=== PATIENT | male | born 1990 | race Caucasian/White ===

== ENCOUNTER 2021-11-08 23:58 | Emergency (ER) | payer OTHER, SELFPAY ==
[2021-11-08 23:58] VITALS: BP 144/89; PULSE 69; RESP 18; TEMP 36.1; BMI 31.2
[2021-11-09 01:14] LABS: Absolute Lymphocyte Count 2.19 X10^3/uL (0.83-4.51); Absolute Neutrophil Count 2.7 X10^3/uL (2.0-7.7); Basophil# 0.06 X10^3/uL; Eosinophil# 0.28 X10^3/uL; Eosinophils% 4.7 % (0-5); Hematocrit 43.4 % (40-54); Hemoglobin 15.1 g/dL (13.0-16.5); Lymphocyte # 2.19 X10^3/ul (0.83-4.51); Lymphocyte % 36.7 % (19-41); Mean Corp Hgb Conc 34.8 g/dL (32-36); Mean Corpuscular Hgb 29.7 pg (27.0-32.0); Mean Corpuscular Volume 85.3 fL (80-94); Monocyte# 0.75 X10^3/uL; Monocyte% 12.6 % (0-10); NRBC Flagged by Analyzer 0 % (0-5); Neutrophil # 2.67 X10^3/uL (2.7-7.7); Neutrophil % 44.8 % (47-70); Platelet Count 201 K/mm3 (150-450); RBC Distribution Width SD 37.4 fl (35.1-43.9); Red Blood Count 5.09 M/mm3 (4.6-6.2)
[2021-11-09 01:31] LABS: ALB/GLOB Ratio 1.4 RATIO (0.9-2.4); AST(SGOT) 30 U/L (15-37); Alanine Aminotransfer ALT/SGPT 44 U/L (16-61); Alkaline Phosphatase 50 U/L (45-117); Anion Gap 3 (5-15); BUN 13 mg/dL (7-18); BUN/Creat Ratio 14.3 RATIO (10-20); Calcium,Total 9.1 mg/dL (8.5-10.1); Chloride 112 mmol/L (98-107); Creatinine, Serum 0.91 mg/dL (0.70-1.30); EST Glomerular Filtration Rate 105 mL/min (>60); Est Glom Filt Rate - Afr Amer 127 mL/min (>60); Estimated Creatinine Clearance 143.15 ml/min; Globulin 2.9 g/dL (2.2-4.2); Glucose 101 mg/dL (74-106); Lipase 76 U/L (73-393); Potassium 4.3 mmol/L (3.5-5.1); Protein, Total 6.9 g/dL (6.4-8.2); Sodium Level 144 mmol/L (136-145)
[2021-11-09] MEDS: Ibuprofen 600 MG Tablet PO (01:43)
[2021-11-09 01:45] VITALS: BP 143/93; PULSE 59; RESP 18; O2SAT 100
--- NOTE | 2021-11-09 02:42 | EDS_ITS ---
HPI HPI - GI History of Present Illness Chief Complaint: GI Bleed Informant: patient Narrative Narrative: Patient is a 31-year-old male no significant past medical history presenting with 2 days of dark tarry stools and now 1 day of bright red blood per rectum. Has some mild left lower quadrant abdominal discomfort with this. Denies any fever or chills. Denies any weight loss. Denies any family history of any inflammatory bowel disease. Denies any night sweats. Denies any nausea or vomiting. Notes he has been having some increased acid reflux lately. Has never had any EGD or colonoscopy. Sees his primary care doctor yearly but it has been about a year since he last saw them. Is on any blood thinners. No other complaints at the time. PFSH PFSH Medical History no medical history Home Medications omeprazole 20 mg PO BID #30 cap 11/09/21 [Rx Last Taken Unknown] Allergy/AdvReac Type Severity Reaction Status Date / Time shellfish derived Allergy Anaphylaxis Verified 11/09/21 00:12 Surgical History no surgical history Social History Smoking Status: Never smoker ROS ROS ED Constitutional Constitutional ED: Denies chills or fever(s) Cardiovascular Cardiovascular: Denies chest pain Respiratory/Chest Respiratory/Chest: Denies cough or dyspnea Gastrointestinal Gastrointestinal: Reports abdominal pain, melena and other Details: BRBPR ; Denies constipation, diarrhea, nausea or vomiting Genitourinary Genitourinary ED: Denies dysuria, hematuria or urinary frequency Musculoskeletal Musculoskeletal: Denies arthralgias or myalgias Integumentary Denies rash Neurologic Neurologic: Denies headache(s) or weakness Psychiatric Psychiatric: Denies depression Hematologic/Lymphatic Hematologic/Lymphatic: Denies easy bleeding or easy bruising EXAM Physical Exam Const Vital Signs: 11/08/21 23:58 11/09/21 01:45 Temperature 97.0 F L Temperature Source Temporal Pulse Rate 69 59 L Respiratory Rate 18 18 Blood Pressure 144/89 H 143/93 H Blood Pressure Mean 107 109 Pulse Ox 100 Oxygen Delivery Method Room Air Positive well nourished and well developed General Appearance ED: well developed and NAD; Negative for pallor HEENT Reports moist mucous membranes normocephalic and atraumatic Eyes PERRL Neck supple Resp normal respiratory effort and clear to auscultation bilaterally Cardio regular rate, regular rhythm and no murmurs GI non-tender and non-distended GI Narrative: No external hemorrhoids or fissures appreciated on rectal exam. Small amount of pink-colored stool on internal rectal exam. No mass appreciated or obvious hemorrhoid. No melena, bright red blood or clots appreciated. Auscultation: normoactive bowel sounds Palpation: soft Back/Spine no CVA tenderness Extremity full ROM Neuro no sensory deficits noted Sensorium / Orientation: alert Motor Exam: strength 5/5 throughout; Negative for general weakness Psych mental status grossly normal Skin General Skin Exam: Negative for pallor Lesions: no lesions Rashes: no rashes MDM MDM MDM Narrative Medical decision making narrative: Patient evaluated for mild left upper qu adrant discomfort as well as tar-like stool that is now bright red blood per rectum. Patient has never had any like this before. He appears nontoxic in no acute distress. Vital signs are significant only for mild hypertension. He notes he has been having some increased acid reflux lately has been taking an [id number] antacid but is not recall the name. Patient is not have any obvious hemorrhoids, fissures or gross bleeding on exam. He has a benign abdominal exam. CBC and CMP as well as lipase obtained. Work-up largely normal including normal white blood cell count, hemoglobin/hematocrit, platelets and a normal BUN to creatinine ratio. Patient will be started on omeprazole for his reflux and possible upper GI bleed however the lower concern given normal BUN. This time I do think he stable for outpatient follow-up with GI. At this time I do not think he has an acute intra-abdominal surgical emergency. No signs of acute infection. Counseled on return precautions. Patient and significant other verbalized agreement understand this plan. Patient discharged home in stable condition. Lab Data Attestation: I reviewed the patient's lab results. Labs: Laboratory Results - last 24 hr 11/09/21 11/09/21 01:07 01:07 WBC 6.0 RBC 5.09 Hgb 15.1 Hct 43.4 MCV 85.3 MCH 29.7 MCHC 34.8 RDW Std Deviation 37.4 RDW Coeff of Sagrario 12.0 Plt Count 201 MPV 11.0 Immature Gran % (Auto) 0.200 Neut % (Auto) 44.8 L Lymph % (Auto) 36.7 Childress % (Auto) 12.6 H Eos % (Auto) 4.7 Baso % (Auto) 1.0 Absolute Neuts (auto) 2.7 Absolute Lymphs (auto) 2.19 Nucleated RBC % 0 Sodium 144 Potassium 4.3 Chloride 112 H Carbon Dioxide 29.0 Anion Gap 3 L BUN 13 Creatinine 0.91 Estim Creat Clear Calc 143.15 Est GFR (MDRD) Af Amer 127 Est GFR (MDRD) Non-Af 105 BUN/Creatinine Ratio 14.3 Glucose 101 Calcium 9.1 Total Bilirubin 0.50 AST 30 ALT 44 Alkaline Phosphatase 50 Total Protein 6.9 Albumin 4.0 Globulin 2.9 Albumin/Globulin Ratio 1.4 Lipase 76 Discharge Plan Triage Chief Complaint: GI Bleed ED Provider: Soo Lerner Dx/Rx/DC Orders Clinical Impression: Acute GI bleeding Instructions: ED Lower GI Bleeding (Stable), ED Upper GI Bleeding (Stable) Prescriptions: New omeprazole 20 mg capsule,delayed release(DR/EC) 20 mg PO BID Qty: 30 RF: 0 Primary Care Provider: Sina Medina NP Referrals: Malcom Salinas DO [STAFF PHYSICIAN] - As soon as possible Sina Medina NP, REIMBURSEMENT REPRESENTATIVE-C [Primary Care Provider] - Disposition Disposition: Home, Self Care Discharge Date/Time: 11/09/21 02:52
== END 2021-11-09 02:52 | disposition home or self-care (01) ==
PROVIDERS: Emergency Provider Emergency Medicine; PCP Nurse Practitioner Primary Care; Visit Provider Emergency Medicine
DX: K92.2 Gastrointestinal hemorrhage, unspecified (principal); I10 Essential (primary) hypertension; R10.32 Left lower quadrant pain; K21.9 Gastro-esophageal reflux disease without esophagitis
CPT/HCPCS: 80053; 82274; 83690; 85025; 99283; A4216

== ENCOUNTER 2022-12-05 18:58 | Emergency (ER) | payer OTHER, SELFPAY ==
[2022-12-05 18:59] VITALS: BP 155/96; PULSE 79; RESP 14; TEMP 36.1; O2SAT 97; BMI 33.0
--- NOTE | 2022-12-05 19:28 | ED.VIS.DENTA ---
HPI History of Present Illness Chief Complaint: Dental Informant: patient Onset/Context/Timing Onset: Days (2) Context: Gradual Onset Timing: Continuous Quality: Aching Location: Right lower third molar Worsened by: Eating Relieved by: Topicals and - (Salt water rinses) Associated Symptoms Assocated Symptom - Dental: jaw swelling; Negative for fever, face swelling, cold sensitivity or hot sensitivity Narrative Narrative: Patient presents with dental pain that has been getting worse over the past 2 days. Patient states the pain is localized to the right lower third molar area. Patient states it has been constant for the past 2 days. Patient describes his pain as aching. Patient states it is worse with eating. Patient states he was doing salt water rinses which have been helping until today. Patient states he was also using topical anesthetics which have been helping until today. Patient admits to some mild swelling of his lower jaw. Patient denies any fevers or chills. Patient denies any hot or cold sensitivity. Patient states he has an appoint with his dentist tomorrow. PFSH PFS Medical History no medical history no medical history Home Medications omeprazole 20 mg capsule,delayed release 20 mg PO BID #30 caps 11/09/21 [Rx Last Taken Unknown] penicillin V potassium 500 mg tablet 500 mg PO 4X/DAY #40 tabs 12/05/22 [Rx Last Taken Unknown] Allergy/AdvReac Type Severity Reaction Status Date / Time shellfish derived Allergy Anaphylaxis Verified 12/05/22 18:59 Surgical History no surgical history no surgical history Social History Smoking Status: Never smoker ROS ROS ED Constitutional Constitutional ED: Denies chills or fever(s) Eyes Eyes: Denies blurry vision or change in vision ENT ENT ED: Denies rhinorrhea or sore throat Cardiovascular Cardiovascular: Denies chest pain or palpitations Respiratory/Chest Respiratory/Chest: Denies cough or dyspnea Gastrointestinal Gastrointestinal: Denies nausea or vomiting Genitourinary Genitourinary ED: Denies dysuria or hematuria Musculoskeletal Musculoskeletal: Denies back pain or neck pain Integumentary Denies abscess or rash Neurologic Neurologic: Denies headache(s) or weakness Allergic/Immunologic Allergic/Immunologic ED: Denies mouth swelling or urticaria EXAM Physical Exam Const Vital Signs: 12/05/22 18:59 Temperature 97 F L Temperature Source Temporal Pulse Rate 79 Respiratory Rate 14 Blood Pressure 155/96 H Blood Pressure Mean 115 Pulse Ox 97 Oxygen Delivery Method Room Air Positive well nourished, well developed and obese General Appearance ED: well developed and NAD Nutritional Appearance: obese HEENT HEENT Narrative: There is tenderness and gingival edema over the right lower third molar. There is a questionable dental carry noted over the right lower third molar. There is no fluctuance. There is no discharge or drainage. Oropharynx is clear. Airway is patent. Neck is supple. Trachea is midline. There is no JVD. There is no sublingual edema. There is no evidence of Jerzy's angina. Mouth ED: Yes lips normal and Yes tongue normal Mouth: lips normal and tongue normal Teeth and Gingiva: caries and gingiva abnormal Positive for gingival edema Throat: posterior oropharynx normal Eyes PERRL and EOMs intact bilaterally Neck supple and no JVD General: Negative for anterior neck swelling, tenderness or submandibular swelling Neuro oriented x3, CN's II-XII intact bilaterally, moves all extremities, no focal motor deficits and no sensory deficits noted Sensorium / Orientation: alert Motor Exam: strength 5/5 throughout Psych mental status grossly normal MDM MDM MDM Narrative Medical decision making narrative: Patient was advised that there may be a an infection in his right lower third molar. Patient was given a dose of Pen-Vee K here. Patient was given a prescription for Pen-Vee K. Patient was instructed to follow-up with his dentist tomorrow as scheduled. Patient was instructed to continue Tylenol and ibuprofen as needed for pain. Patient understands and is agreeable with the plan. All questions were answered. Discharge Plan Triage Chief Complaint: Dental ED Provider: Dilip Seth Dx/Rx/DC Orders Clinical Impression: Infected dental caries Instructions: ED Dental Pain, ED Dental Cavity Prescriptions: New penicillin V potassium 500 mg tablet 500 mg PO 4X/DAY Qty: 40 0RF No Action omeprazole 20 mg capsule,delayed release(DR/EC) 20 mg PO BID Qty: 30 0RF Primary Care Provider: Sina Medina NP Referrals: Sina Medina NP, AUTO SLIP COVER INSTALLER-C [Primary Care Provider] - 5-7 Days Dentist,Your [STAFF PHYSICIAN] - Keep Cristina appointment Disposition Disposition: Home, Self Care
[2022-12-05] MEDS: Penicillin Vk 250 MG Tablet 500 MG PO (19:53)
== END 2022-12-05 19:54 | disposition home or self-care (01) ==
LOC: ED 19:44
PROVIDERS: Emergency Provider Emergency Medicine; PCP Nurse Practitioner Primary Care; Visit Provider Emergency Medicine
DX: K02.9 Dental caries, unspecified (principal)
CPT/HCPCS: 99283

== ENCOUNTER 2023-04-23 08:34 | Emergency (ER) | payer OTHER, SELFPAY ==
[2023-04-23 08:35] VITALS: BP 159/95; PULSE 76; RESP 15; TEMP 36.3; O2SAT 99; BMI 29.9
--- NOTE | 2023-04-23 09:05 | CT_ITS ---
STUDY: CT ABDOMEN AND PELVIS WITH CONTRAST - URINARY TRACT REASON FOR EXAM: Male, 32 years old. Umbilical pain RADIATION DOSAGE (If Supplied By Facility): CTDIvol = ( 20.29 ) mGy, DLP = ( 1397.20 ) mGycm TECHNIQUE: IV 100mL Isovue-370 was administered. Transaxial images were obtained from the dome of the diaphragm to the symphysis pubis in the arterial, nephrographic and excretory phases. Multiplanar coronal and sagittal images were reformatted. Individualized Dose Optimization Techniques Were Used For This CT. COMPARISON: FINDINGS: The visualized lung bases are unremarkable. The visualized portions of the heart are within normal limits. Fatty liver. Normal gallbladder and extrahepatic biliary system. Normal spleen. Normal pancreas. Normal bilateral adrenal glands. Normal visualized stomach. Normal small intestine. Normal colon. The appendix is visualized and appears normal. Normal abdominal aorta. No retroperitoneal adenopathy. Normal right kidney. Normal left kidney. Normal urinary bladder. Umbilical hernia measures 1.5 cm transverse by 2.8 cm AP. No evidence of bowel within hernia sac. Normal osseous structures. CT/Abdomen/Pelvis W IV Cont ONLY IMPRESSION: Umbilical hernia. Fatty liver. Electronically Signed: Juan Dhaliwal MD at 9:56 EDT ,
--- NOTE | 2023-04-23 09:06 | EDS_ITS ---
HPI HPI - GI History of Present Illness Chief Complaint: Abd Pain Narrative Narrative: 32-year-old male who denies significant past medical history presents with umbilical pain and swelling that he has had for the last 2 days. He relates history that last year he is checked by his primary care physician for hernia. Over the last 2 days he has developed somewhat of a burning pain and constant, to dull pain in the umbilical area. He states that it feels little swollen around his bellybutton. It also radiates a little bit to the right lower quadrant. He denies any dysuria or hematuria. While he has had intermittent problems with constipation, he was able to have a normal bowel movement this morning. No fevers or chills, no nausea or vomiting. He presents because of the pain that seems to be getting worse over the last 2 days near his umbilicus. No true exacerbating or alleviating factors. PFSH PFSH Medical History no medical history Home Medications penicillin V potassium 500 mg tablet 500 mg PO 4X/DAY #40 tabs 12/05/22 [Rx Last Taken Unknown] Allergy/AdvReac Type Severity Reaction Status Date / Time shellfish derived Allergy Anaphylaxis Verified 04/23/23 08:37 Surgical History no surgical history Social History Smoking Status: Never smoker ROS ROS ED ROS Narrative Constitutional: No fever, no chills. HEENT: No sore throat. No neck pain. No loss of vision. No rhinorrhea. Cardiovascular: No chest pain. No palpitations. No pedal edema. Respiratory: No cough, no shortness of breath. Abdominal: Umbilical to periumbilical abdominal pain. No nausea. No vomiting. Intermittent constipation, last bowel movement today, normal. Genitourinary: No dysuria. No hematuria. Musculoskeletal: No myalgias. No arthralgias. Neurologic: No headaches. No dizziness. No lightheadedness. Skin: No rash. No change in color. Psychiatric: No depression. No anxiety. EXAM Physical Exam Narrative Exam Narrative: Afebrile. Vital signs noted. HEENT: Normocephalic. Atraumatic. PERRL, EOMI. Neck soft and supple. No point tenderness or step off. Cardiovascular: Regular rate and rhythm. No murmurs, rubs, or gallops appreciated. Respiratory: No tachypnea. Lungs clear to auscultation bilaterally. Gastrointestinal: Abdomen soft, positive tenderness around umbilicus with mild swelling, no erythema with normoactive bowel sounds. No tenderness over McBurney's point. No rebound or guarding. Neurological: Awake. Alert. Nonfocal, nonlateralizing. Skin: No rash. Normal color. No pallor. Musculoskeletal: No pedal edema. Full range of motion extremities. Const Vital Signs: 04/23/23 08:35 Temperature 97.4 F L Temperature Source Temporal Pulse Rate 76 Respiratory Rate 15 Blood Pressure 159/95 H Blood Pressure Mean 116 Pulse Ox 99 Oxygen Delivery Method Room Air MDM MDM MDM Narrative Medical decision making narrative: I do feel that the patient probably has more of an umbilical hernia with omental fat contained. I have lower suspicion for incarcerated hernia of bowel as he was having a normal bowel movement today and still experiencing flatulence wi thout nausea or vomiting. There is no dusky color to his hernia, or erythema. I will obtain baseline laboratory work and a CT of the abdomen and pelvis with IV contrast. I reviewed the patient's laboratory work, and he has a normal white count of 4.5, BMP shows chloride elevated at 110 which I think is nonspecific, BUN normal at 11, creatinine normal at 0.84, glucose appropriately elevated at 99. I reviewed the CT report of the abdomen pelvis with IV contrast which does show an umbilical hernia, but no bowel contents contained within. While the hernia is reducible, given the size of the defect, it comes back out. There are no clinical signs of incarceration currently. Patient was administered morphine for analgesia. I do not think he has an emergent condition, family was concerned about when they can follow-up with general surgery. I contacted Dr. Gerardo for close follow-up. He is to call the office on Tuesday after the holiday. Patient was going to be discharged with a prescription for analgesics and follow-up to Dr. Gerardo, but he declined narcotic pain medications at this time. Return instructions were reviewed. I do not feel he requires observation. Disposition is discharged home in stable condition. Patient and his are agreeable to the plan. History & Record Review Discussion w/independent historian: Patient and Family Additional record(s) reviewed:: Prior ED visit Lab Data Attestation: I reviewed the patient's lab results. Labs: Laboratory Results - last 24 hr 04/23/23 09:20 WBC 4.5 RBC 5.37 Hgb 15.7 Hct 45.3 MCV 84.4 MCH 29.2 MCHC 34.7 RDW Std Deviation 37.1 RDW Coeff of Sagrario 12.3 Plt Count 177 MPV 10.9 Immature Gran % (Auto) 0.200 Neut % (Auto) 45.0 L Lymph % (Auto) 37.0 Hughes % (Auto) 11.9 H Eos % (Auto) 4.8 Baso % (Auto) 1.1 H Absolute Neuts (auto) 2.0 Absolute Lymphs (auto) 1.68 Nucleated RBC % 0 Sodium 142 Potassium 4.0 Chloride 110 H Carbon Dioxide 31.0 Anion Gap 1 L BUN 11 Creatinine 0.84 Estim Creat Clear Calc 153.69 Est GFR (MDRD) Af Amer 137 Est GFR (MDRD) Non-Af 113 BUN/Creatinine Ratio 13.0 Glucose 99 Calcium 8.8 Radiography Diagnostic Testing: Clinical Impression(s) from Imaging Studies Abdomen/Pelvis CT 04/23/23 09:05 IMPRESSION: Umbilical hernia. Fatty liver. Electronically Signed: Juan Dhaliwal MD at 9:56 EDT Reading Location ID and State: [facility] / [place] Tel , Service support , Discharge Plan Triage Chief Complaint: Abd Pain ED Provider: Noman Moura Dx/Rx/DC Orders Clinical Impression: Umbilical hernia, Abdominal pain Instructions: ED Hernia (Adult) Prescriptions: No Action penicillin V potassium 500 mg tablet 500 mg PO 4X/DAY Qty: 40 0RF Primary Care Provider: Sina Medina NP Referrals: Scooter Gerardo MD [Med Staff - Active Staff] - 04/26/23 Sina Medina NP, NEUROPHYSIOLOGICAL TECHNICIAN-C [Primary Care Provider] - Activity Restrictions/Additional Instructions: Call Dr. Gerardo on April 26 for an appointment to be seen. Return to the emergency department with fever, nausea, vomiting, redness to your umbilical hernia, new or worsening symptoms. Disposition Disposition: Home, Self Care
[2023-04-23] MEDS: 0.9% Normal Saline 1,000 ML 1000 ML IV (09:23)
[2023-04-23 09:37] LABS: Absolute Lymphocyte Count 1.68 X10^3/uL (0.83-4.51); Basophil# 0.05 X10^3/uL; Basophil% 1.1 % (0-1); Eosinophil# 0.22 X10^3/uL; Eosinophils% 4.8 % (0-5); Hematocrit 45.3 % (40-54); Hemoglobin 15.7 g/dL (13.0-16.5); Lymphocyte # 1.68 X10^3/ul (0.83-4.51); Mean Corp Hgb Conc 34.7 g/dL (32-36); Mean Corpuscular Hgb 29.2 pg (27.0-32.0); Mean Corpuscular Volume 84.4 fL (80-94); Mean Platelet Vol. 10.9 fl (6.2-12.0); Monocyte# 0.54 X10^3/uL; Monocyte% 11.9 % (0-10); NRBC Flagged by Analyzer 0 % (0-5); Neutrophil # 2.04 X10^3/uL (2.7-7.7); Platelet Count 177 K/mm3 (150-450); RBC Distribution Width CV 12.3 % (11.6-14.6); RBC Distribution Width SD 37.1 fl (35.1-43.9); Red Blood Count 5.37 M/mm3 (4.6-6.2); White Blood Count 4.5 K/mm3 (4.4-11.0)
[2023-04-23 09:39] LABS: Anion Gap 1 (5-15); BUN 11 mg/dL (7-18); Calcium,Total 8.8 mg/dL (8.5-10.1); Chloride 110 mmol/L (98-107); Creatinine, Serum 0.84 mg/dL (0.70-1.30); EST Glomerular Filtration Rate 113 mL/min (>60); Est Glom Filt Rate - Afr Amer 137 mL/min (>60); Estimated Creatinine Clearance 153.69 ml/min; Glucose 99 mg/dL (74-106); Sodium Level 142 mmol/L (136-145)
[2023-04-23] MEDS: Morphine 4 MG/ML Syringe IV (10:12)
== END 2023-04-23 10:17 | disposition home or self-care (01) ==
PROVIDERS: Emergency Provider Emergency Medicine; PCP Nurse Practitioner Primary Care; Visit Provider Emergency Medicine
DX: K42.9 Umbilical hernia without obstruction or gangrene (principal)
CPT/HCPCS: 74177; 80048; 85025; 96374; 99282; J7030; Q9967; A4216

== ENCOUNTER 2023-05-09 05:54 | Day surgery (SDC) | payer OTHER, SELFPAY ==
[2023-05-09 06:24] VITALS: BP 154/87; PULSE 71; RESP 18; TEMP 36.4; O2SAT 97; BMI 33.4
[2023-05-09] MEDS: Lactated Ringers 1,000 ML 15 ML IV (06:39)
--- NOTE | 2023-05-09 07:14 | PCM.HP.BLA ---
History and Physical Date of Admission: 05/09/23 Date of Service: 05/04/23 MR#: [id number] Acct: [id number] Name: JENNA WILKERSON Rep #: [id number] : 1990 Provider: Dr. Scooter Gerardo MD Age/Sex: 32/M Location: [facility] Status: Signed Intake Vital Signs 04/23/2308:35 05/04/2309:57 Height 6 ft 3 in 6 ft 3 in Weight: 266 lb BMI 33.2 BP 143/89 H Blood Pressure Location Rt brachial Position Sitting Respiration 17 Pulse 70 Pulse Source Monitor Temp 96.9 F L Temp Source Temporal Pulse Oximetry (%) 98 Oxygen Delivery Method room air Intake Visit Reasons: ED 04-23 - HERNIA Chief Complaint: ED 04/23, Hernia Is patient in pain?: No Allergies shellfish derived Allergy (Verified 05/04/23 10:00) Anaphylaxis PFSH Medical History no medical history Family History (Updated 05/04/23 @ 09:57 by Lesly Cassidy) Father Diabetes Social History (Updated 05/04/23 @ 09:57 by Lesly Cassidy) Smoking Status: Never smoker alcohol intake: current substance use type: does not use HPI HPI HPI: Patient is a 32-year-old male who presents for formal surgical evaluation of an umbilical hernia. He was seen in the emergency department on 04/23/2023 for this issue. This finding was first noticed by patient over 2 years ago. Patient is able to recall how this occurred and relates that he was working for [employer] at the time doing frequent heavy lifting without much thought to proper technique. He states that since the hernia first occurred he has switched jobs and now works at [employer] doing minimal physical activity. However, he does believe that his hernia has grown in size and has become sensitive to touch. He states he felt reassurance after CT imaging was performed in the emergency room and he was told he did not have any bowel involved with the hernia. Yet he remains interested in having it fixed as soon as possible to avoid such a scenario. Patient has no personal history of smoking. Patient has no personal history of recurrent cutaneous infections including staph. Pertinent surgical history includes: No prior abdominal surgeries ROS General General: No weight change, appetite, fatigue, colon cancer, breast cancer or weakness HEENT HEENT: No difficulty swallowing, eye injury, eye surgery, swollen glands or hoarseness Endo Endocrine: No thyroid disease, diabetes mellitus, thyroid cancer, Hair loss, heat intolerance or cold intolerance Skin Skin: No rash or changing moles Musc Musculoskeletal: No back problems, arthritis, rheumatoid arthritis, gout or joint pain Cardio Cardiovascular: No murmur, pacemaker, heart disease, atrial fibrillation, high blood pressure, heart attack, heart stent, palpitations, shortness of breat with exertion or chest pain Psych Psychiatric: No depression, anxiety or hearing voices Resp Respiratory: No shortness of breath, No sleep apnea, Yes cough, No COPD, No asthma, No emphysema and No wheezing Gastro Gastrointestinal: Yes abdominal pain, No nausea or vomiting, No diarrhea, No constipation, No blood in stool, Yes acid reflux, No hemorrhoids, No ulcers, No gallbladder problem and No black,tarry stools Matthias Hematologic: No blood thinners, No blood disorders, No bleeding, No anemia and No blood clots Neuro Neurologic: No system reviewed and no additional complaints, except as documented, No as per HPI, No abnormal gait, No abnormal hearing, No abnormal movements, No abnormal speech, No behavioral changes, No burning sensations, No confusion, No convulsions, No disequilibrium, No dizziness, No localized weakness, No frequent falls, No headache(s), No lack of coordination, No loss of vision, No memory loss, No numbness, No other visual disturbances, No radicular pain, No restless legs, No sensory deficit, No syncope, No tingling, No tremor(s), No weakness and No other Exam Const General: cooperative and anxious Nutritional Appearance: obese Orientation: alert, awake and oriented x3 Resp Effort & Inspection: normal respiratory effort GI Other: Obese, nondistended, no scars, visible umbilical herniation containing fat. Hernia is quite tender with palpation and I am unable to palpate deep enough to feel patient's fascial defect Assessment and Plan Assessment and Plan (1) Umbilical hernia: Status: Acute Qualifiers: Obstruction and gangrene presence: without obstruction or gangrene Qualified Code(s): K42.9 - Umbilical hernia without obstruction or gangrene Comment: This is a 32-year-old male with a symptomatic umbilical hernia likely containing incarcerated omentum. Patient's recent CT imaging certainly suggest this is a possibility and his exam is further consistent with this diagnosis. I suspect that it is relative malperfusion of this tuft of fat that is causing his symptoms. I have tried to reassure Mr. Wilkerson that this fat is actually acting as a placeholder and thereby excluding bowel presently. Still, given its tenderness he requests repair sooner than later. I have discussed his surgical options to include open versus minimally invasive approaches. At this time he wishes to proceed with a minimally invasive repair with mesh. As seen on CT imaging, patient's hernia defect is at least 1.5 cm in greatest diameter placement of at least a 10 cm mesh would thereby give us at least 4 cm overlap). He confirms that he is prepared to adhere to postoperative activity restrictions and we will plan to obtain a nasal swab to evaluate for possible staph colonization of the nares. Plan: ? Robot-assisted umbilical hernia repair with mesh tentatively set for 05/09/2023 Orders: Orders MRSA/SAID SCREEN (PRE SURG) Today K42.9 - Umbilical hernia without obstruction or gangrene I have examined the patient and the H&P has been reviewed. There are no clinical changes since date of exam. Patient did have MRSA screening and this returned with a negative result. Procedure and post procedure expectations were reviewed. Neither he nor spouse have any further questions. Proceed to the operating room for robot-assisted umbilical hernia repair with mesh as discussed above.
[2023-05-09] MEDS: Cefazolin 2 GM in 0.9% Normal Saline (100mL Bag) 100 ML IV (07:28)
--- NOTE | 2023-05-09 09:52 | OP.PCM_ITS ---
Report of Operation Date of Procedure: 05/09/23 Pre-Operative Diagnosis: Primary umbilical hernia with incarcerated fat Post-Operative Diagnosis: Same Surgery/Procedure Performed:: Robot-assisted transabdominal preperitoneal umbilical hernia repair with mesh Description of Surgical Findings:: ? Just over 1.5 cm fascial defect with incarcerated omentum Surgeon: Scooter Gerardo Type of Anesthesia: General/Supplemental Specimen's removed: NA Estimated Blood Loss (mL): 10 Description of Procedure: After appropriate identification in the preoperative holding area, the patient was brought to the operating room suite where he was positioned supine the operating table. Preoperative antibiotics were administered. Patient was then induced with a general anesthetic. Patient's abdomen was prepped and draped in the usual sterile fashion. A formal timeout followed to confirm patient and procedure. Procedure was begun with a Veress entry at Jenkins's point. Once the set point pressure was reached, this Veress needle was exchanged for an optical trocar and an optical entry was made in this location. Laparoscopic investigation revealed no inadvertent injury to the viscera below. Two additional 8 mm robotic trocars were placed along the abdominal wall laterally taking care to avoid the bony prominences of the costal margin and the ASIS. A transversus abdominis plane block was created with 70mL of a cocktail of Exparel, Marcaine, and saline (mixed 30mL bupivacaine, 20mL of Exparel, 20mL saline) under laparoscopic vision as these ports were placed. The robot was then brought in and docked in standard fashion. Gentle traction and selective electrocautery was used to reduce the tuft of incarcerated omental fat from the hernia defect. Then, robotically a peritoneal flap was raised approximately 4 cm medial from my trocars and carried this away towards the contralateral abdominal wall. Great care was taken to lower the peritoneum off of the posterior rectus sheath and avoid any rents in the peritoneal flap, however, a small 2 cm rent was made in the posterior rectus sheath exposing the muscle and I was able to then regain the appropriate plane. Perforating vessels were sealed with bipolar energy to maintain hemostasis as this flap dissection proceeded. I then addressed the hernia directly by opening the scar tissue about the hernia sac and carefully applying manual traction downward until the hernia was fully reduced. A moderate amount of preperitoneal fat was reduced in addition to the previously reduced fat. The flap was then further dissected laterally until it appeared we had adequate width. The hernia defect was closed with a 6 inch #1 stratafix suture by running the fascial defect closed and then running the suture back upon itself. As this fascial closure proceeded several tacking sutures were taken of the depressed umbilical skin to return its natural concavity with the closure but taking care to avoid full-thickness bites. Next a 8 cm x 8 cm ventral light mesh was introduced into the peritoneum and a 3-0 V- Loc suture was used to chandelier the mesh. This V-Loc suture was then used to run a circumferential perimeter about the mesh tacking it nicely against the underside of the abdominal wall. Lastly the peritoneum was closed with another 3-0 V-Loc suture. A small rent in the peritoneum was covered with tacking of the hernia sac across this opening such that no mesh was exposed. The robot was then undocked and the trocars were removed. Additional local anesthetic was instilled and the port sites were closed with interrupted 4-0 Monocryl in subcuticular fashion. Steri-Strips and OpSite dressings were applied. Patient was transferred to PACU for ongoing care. Grafts/Implants Used: Ventralight ST reference [id number], lot [id number] Complications None Admit VTE Documentation VTE Mechan Device Prophylaxis: SCD's
[2023-05-09] MEDS: Bupivacaine 0.25% 30 ML Vial (09:57)
[2023-05-09] MEDS: BUPIVACAINE LIPOSOME/PF 20 ML VIAL OPERA.SITE (09:57)
[2023-05-09] MEDS: 0.9% Normal Saline (Pres. free 10 ML Vial (09:57)
--- NOTE | 2023-05-09 10:01 | DCINST_ITS ---
Discharge Instructions Diet Discharge Diet: No restrictions Activity Discharge Activity: May Not Drive (While taking narcotic pain medication) and May Shower May shower in (days): 2 Ice area for (Minutes): 20 Lifting Restrictions: No lifting greater than 10 pounds for the next 5 weeks Dressing / Incision Call your doctor if your incision/area has: Continuous Slow Oozing, Increased Pain/ Swelling, Increased Redness, Foul Smelling Discharge and Swelling at the incision site Call your doctor if you observe: Fever of 101 or Higher, Inability to urinate and Inability to have a bowel movement Change Dressing in: 2 days (Please leave Steri-Strips intact until they fall off spontaneously or are taken off at your follow-up visit) Remove Dressing in: 2 days Cleanse incision/area with: Soap & Water and Keep Dressing Clean & Dry Follow Up Care Please Follow Up With: Scooter Gerardo MD When: 1 week postop Test Results: Test results from this visit will be discussed in further detail at your follow- up appointment, if applicable. Discharge Plan Admission Primary Reason for Your Visit: Umbilical hernia repair Attending Provider: Scooter Gerardo Primary Care Provider: Sina Medina NP Discharge Orders/Prescriptions Prescriptions: New oxycodone 5 mg tablet 5 mg PO Q6H PRN (Reason: pain) 3 Days Qty: 14 0RF Referrals / Follow Up: Sina Medina NP, ASSISTANT STORE DIRECTOR-C [Primary Care Provider] - Disposition Disposition (needs filled in before D/C Order can be placed): Home, Self Care
[2023-05-09 10:33] VITALS: BP 154/87; BP 157/90; PULSE 73; RESP 16; TEMP 36.4; O2SAT 100
[2023-05-09 10:45] VITALS: BP 150/95; BP 154/87; PULSE 73; RESP 16; O2SAT 98
[2023-05-09 11:00] VITALS: BP 150/87; BP 154/87; PULSE 80; RESP 16; O2SAT 94
[2023-05-09 11:03] VITALS: BP 154/87; BP 157/91; PULSE 78; RESP 16; TEMP 36.4; O2SAT 96
[2023-05-09 11:57] VITALS: BP 154/84; BP 154/87; PULSE 84; RESP 16; TEMP 36.7; O2SAT 97
== END 2023-05-09 12:07 | disposition home or self-care (01) ==
LOC: SDC 05:54 → AC 05:56
PROVIDERS: PCP Nurse Practitioner Primary Care; Referring Provider Surgery; Visit Provider Surgery
PROC: (CPT 49592; principal; 2023-05-09 07:10)
DX: K42.0 Umbilical hernia with obstruction, without gangrene (principal); E66.9 Obesity, unspecified; Z68.33 Body mass index [BMI] 33.0-33.9, adult
CPT/HCPCS: 49592; S2900; 00750; 87081; J7120; C1781; J2405; J3490

== ENCOUNTER 2024-12-07 20:22 | Emergency (ER) | payer OTHER, SELFPAY ==
[2024-12-07 20:23] VITALS: BP 140/86; PULSE 68; RESP 18; TEMP 36.5; O2SAT 96; BMI 31.4
[2024-12-07 21:30] VITALS: BP 119/76; PULSE 65; RESP 14; O2SAT 98
--- NOTE | 2024-12-07 21:48 | EKG12_ITS ---
Test Reason : CP Blood Pressure : */* mmHG Vent. Rate : 61 BPM Atrial Rate : 61 BPM P-R Int : 132 ms QRS Dur : 86 ms QT Int : 380 ms P-R-T Axes : 20 7 13 degrees QTcB Int : 382 ms Normal sinus rhythm Normal ECG Confirmed by HERNESTO CHACON, NICKI ([id number]), film and video editor BERNARDINO JACOBSON ([id number]) on 12/10/2024 8:44:12 AM Referred By: Confirmed By: NICKI ERIC MD
--- NOTE | 2024-12-07 21:53 | RAD_ITS ---
PROCEDURE: CHEST 1 VIEW (PORTABLE) 12/07/2024 REASON FOR EXAM: CHEST PAIN TECHNIQUE: Frontal view of the chest. COMPARISON: None FINDINGS: Hardware: None Heart: The heart size is normal. Lungs: The lungs are clear. Bones: The bones are unremarkable. Other: RAD/Chest 1 View (Portable) IMPRESSION: No Acute Findings. Reading Location: [facility]
--- NOTE | 2024-12-07 21:54 | ED.VIS.CHEST ---
HPI History of Present Illness Chief Complaint: Chest Pain Informant: patient and spouse/S.O. Narrative Narrative: 34-year-old male presenting to the emergency room with a chief complaint of chest pain. Patient states that around 5 he was at work had dinner. He states around 630 he developed a pressure sensation in his chest. He states that he went to the break room and rested got better but then it returned with some lightheadedness and a tingling sensation near the left AC joint. Patient states he feels back to baseline now. Patient denies any DVT or PE risk factors. He notes a history of GERD intermittently but states it typically does not feel like this. PFSH PFSH Medical History Alcohol use Gastric reflux Non-smoker Home Medications ?Medication ?Instructions ?Recorded ?Last Taken ?Type NK 05/20/23 Unknown History Allergy/AdvReac Type Severity Reaction Status Date / Time shellfish derived Allergy Anaphylaxis Verified 12/07/24 20:23 Family History Father Diabetes Surgical History History of umbilical hernia repair (~04/2023) Hx of tonsillectomy Hx of wisdom tooth extraction Social History Smoking Status: Never smoker alcohol intake: current substance use type: does not use ROS ROS ED Constitutional Constitutional ED: Denies chills, fever(s) or weight loss Eyes Eyes: Denies change in vision or diplopia ENT ENT ED: Denies ear pain, rhinorrhea or sore throat Cardiovascular Cardiovascular: Reports as per HPI and chest pain; Denies orthopnea, palpitations or racing heartbeat Respiratory/Chest Respiratory/Chest: Denies cough, dyspnea or orthopnea Gastrointestinal Gastrointestinal: Denies abdominal pain, diarrhea, nausea or vomiting Genitourinary Genitourinary ED: Denies dysuria, hematuria or urinary frequency Musculoskeletal Musculoskeletal: Denies arthralgias or myalgias Integumentary Denies abscess or rash Neurologic Neurologic: Denies headache(s) or weakness Psychiatric Psychiatric: Denies anxiety, depression, suicidal ideation or suicidal thoughts Endocrine Endocrinology: Denies polydipsia, polyphagia or polyuria Allergic/Immunologic Allergic/Immunologic ED: Denies mouth swelling, tongue swelling or urticaria EXAM Physical Exam Const Vital Signs: 12/07/24 20:23 12/07/24 20:34 12/07/24 21:30 Temperature 97.7 F L Temperature Source Temporal Pulse Rate 68 65 Respiratory Rate 18 14 Respiratory Effort Normal Non-Labored Respiratory Pattern Normal Blood Pressure 140/86 H 119/76 Blood Pressure Mean 104 90 Pulse Ox 96 98 Oxygen Delivery Method Room Air Room Air 12/07/24 22:00 12/07/24 23:00 Temperature Temperature Source Pulse Rate 59 L 60 Respiratory Rate 16 18 Respiratory Effort Respiratory Pattern Blood Pressure 125/71 H 127/81 H Blood Pressure Mean 89 96 Pulse Ox 99 99 Oxygen Delivery Method Room Air Room Air Positive well nourished and well developed General Appearance ED: well developed HEENT Reports normocephalic, head/scalp atraumatic and moist mucous membranes Eyes PERRL and EOMs intact bilaterally Neck no lymphadenopathy, supple and no JVD Chest Wall inspection of chest normal and palpation of chest normal Resp normal respiratory effort and clear to auscultation bilaterally Cardio regular rate, regular rhythm and no murmurs GI normal to inspection, nondistended, normoactive bowel sounds and non-tender Palpation: soft Back/Spine no CVA tenderness and normal ROM Extremity normal to inspection General Extremety ED: Negative for edema General Extremity: Negative for edema Neuro oriented x3 and CN's II-XII intact bilaterally Sensorium / Orientation: alert Motor Exam: strength 5/5 throughout Psych mental status grossly normal Mood & Affect: Negative for depressed or tearful Skin no rashes or lesions noted and no wounds MDM MDM MDM Narrative Medical decision making narrative: Differential diagnosis includes pulmonary embolism acute coronary syndrome esophageal spasm pericarditis pneumothorax pneumonia pleural effusion GERD Patient is PERC negative. EKG is nonischemic and shows a normal sinus rhythm at a rate of 61 bpm. Initial troponin is less than 6. Glucose is 79. Electrolytes within normal limits. Hemoglobin 15.8. My independent interpretation of the chest x-ray is no acute process normal mediastinal silhouette. Second troponin was obtained and is patient observed on the monitors had no cardiac dysrhythmias noted. Second troponin was less than 6 also. Clinically I think this is unlikely to be cardiac in nature. I do not see evidence of pulmonary embolism dissection aneurysm pneumothorax pleural effusion. Most likely this was esophageal spasm. He does not get daily reflux symptoms and there is no evidence of upper GI bleeding. I think it is reasonable to continue to monitor follow-up with primary care if needed patient to return if worsening or concerns History & Record Review Discussion w/independent historian: Patient and Family Lab Data Attestation: I reviewed the patient's lab results. Labs: Laboratory Results - last 24 hr 12/07/24 12/07/24 20:38 22:58 WBC 5.7 RBC 5.42 Hgb 15.8 Hct 44.3 MCV 81.7 MCH 29.2 MCHC 35.7 RDW Std Deviation 35.6 RDW Coeff of [place] 12.1 Plt Count 224 MPV 11.7 Immature Gran % (Auto) 0.400 Neut % (Auto) 45.9 L Lymph % (Auto) 39.1 [place] % (Auto) 10.4 H Eos % (Auto) 2.8 Baso % (Auto) 1.4 H Absolute Neuts (auto) 2.6 Absolute Lymphs (auto) 2.21 Nucleated RBC % 0 Sodium 140 Potassium 4.1 Chloride 105 Carbon Dioxide 22.7 Anion Gap 12 BUN 15 Creatinine 0.87 Estim Creat Clear Calc 161.64 Est GFR (MDRD) Non-Af 118 BUN/Creatinine Ratio 16.9 Glucose 79 Calcium 9.5 Troponin T High Sens < 6 Troponin T Hi Sens 2 Hr < 6 Radiography Diagnostic Testing: Clinical Impression(s) from Imaging Studies Chest X-Ray 12/07/24 21:53 IMPRESSION: No Acute Findings. Reading Location: [facility] EKG Initial EKG: Attestation: I personally reviewed and interpreted this EKG as follows: Comments: Normal sinus rhythm ventricular rate of 61 bpm. Discharge Plan Triage Chief Complaint: Chest Pain ED Provider: Jules Durán Dx/Rx/DC Orders Clinical Impression: Chest pain Instructions: ED Chest Pain, Noncardiac Prescriptions: No Action NK Primary Care Provider: Sina Medina NP Referrals: Sina Medina NP, IT SUPPORT MANAGER-C [Primary Care Provider] - As Needed Print Language: Greenlandic Disposition Disposition: Home, Self Care
[2024-12-07 21:59] LABS: Absolute Lymphocyte Count 2.21 X10^3/uL (0.83-4.51); Absolute Neutrophil Count 2.6 X10^3/uL (2.0-7.7); Basophil# 0.08 X10^3/uL; Basophil% 1.4 % (0-1); Eosinophil# 0.16 X10^3/uL; Eosinophils% 2.8 % (0-5); Hematocrit 44.3 % (40-54); Hemoglobin 15.8 g/dL (13.0-16.5); Lymphocyte # 2.21 X10^3/ul (0.83-4.51); Lymphocyte % 39.1 % (19-41); Mean Corp Hgb Conc 35.7 g/dL (32-36); Mean Corpuscular Hgb 29.2 pg (27.0-32.0); Mean Corpuscular Volume 81.7 fL (80-94); Mean Platelet Vol. 11.7 fl (6.2-12.0); Monocyte# 0.59 X10^3/uL; Monocyte% 10.4 % (0-10); NRBC Flagged by Analyzer 0 % (0-5); Neutrophil # 2.59 X10^3/uL (2.7-7.7); Neutrophil % 45.9 % (47-70); Platelet Count 224 K/mm3 (150-450); RBC Distribution Width CV 12.1 % (11.6-14.6); RBC Distribution Width SD 35.6 fl (35.1-43.9); Red Blood Count 5.42 M/mm3 (4.6-6.2); White Blood Count 5.7 K/mm3 (4.4-11.0)
[2024-12-07 22:00] VITALS: BP 125/71; PULSE 59; RESP 16; O2SAT 99
[2024-12-07 22:39] LABS: Troponin T High Sensitivity < 6 ng/L (<=22)
[2024-12-07 22:40] LABS: Anion Gap 12 (5-15); BUN 15 mg/dL (4-19); BUN/Creat Ratio 16.9 RATIO (10-20); Calcium,Total 9.5 mg/dL (7.6-11.0); Carbon Dioxide 22.7 mmol/L (21.0-32.0); Chloride 105 mmol/L (98-108); Creatinine, Serum 0.87 mg/dL (0.70-1.20); EST Glomerular Filtration Rate 118 (>60); Estimated Creatinine Clearance 161.64 ml/min (50-250); Glucose 79 mg/dL (70-99); Potassium 4.1 mmol/L (3.3-5.1); Sodium Level 140 mmol/L (133-145)
[2024-12-07 23:00] VITALS: BP 127/81; PULSE 60; RESP 18; O2SAT 99
[2024-12-07 23:31] LABS: Troponin T High Sens 2 HR < 6 ng/L (<=22)
[2024-12-07 23:37] VITALS: BP 128/85; PULSE 73; RESP 14; TEMP 36.7; O2SAT 100
== END 2024-12-07 23:41 | disposition home or self-care (01) ==
PROVIDERS: Emergency Provider Emergency Medicine; PCP Nurse Practitioner Primary Care; Visit Provider Emergency Medicine
DX: R07.9 Chest pain, unspecified (principal)
CPT/HCPCS: 71045; 80048; 84484; 85025; 93005; 99284; A4216